=== PATIENT | female | born 1985 | race Caucasian/White ===

== ENCOUNTER 2020-12-09 09:44 | Outpatient (CLI) | payer OTHER | END 2020-12-09 23:59 | disposition home or self-care (01) | LOC: LAB 09:44 | PROVIDERS: ATTEND Student in an Organized Health Care Education/Training Program | DX: Z01.812 Encounter for preprocedural laboratory examination (principal); Z20.822 Contact with and (suspected) exposure to COVID-19 | CPT/HCPCS: C9803; U0003 ==

== ENCOUNTER 2020-12-14 12:25 | Day surgery (SDC) | payer OTHER ==
[2020-12-14] MEDS ORDERED: BUPIVACAINE 0.5 % PF 150 MG/30 ML VIAL ONE (13:10)
[2020-12-14] MEDS ORDERED: EPINEPHRINE (1:1000) 1 MG/ML AMPUL ONE (13:10)
[2020-12-14] MEDS ORDERED: FENTANYL PF 100MCG/2ML AMPUL ONE ×2 (14:16→14:45)
[2020-12-14] MEDS ORDERED: MIDAZOLAM HCL 2 MG/2ML VIAL ONE (14:16)
[2020-12-14] MEDS ORDERED: MORPHINE SULFATE/PF 10 MG/10ML (1MG/ML) AMPUL ONE (14:53)
== END 2020-12-14 16:50 | disposition home or self-care (01) ==
LOC: DS 12:25
PROVIDERS: ATTEND Student in an Organized Health Care Education/Training Program
DX: M22.2X2 Patellofemoral disorders, left knee (principal); M65.862 Other synovitis and tenosynovitis, left lower leg; E66.3 Overweight; M25.562 Pain in left knee
CPT/HCPCS: 29873; 84703; 93005; A4217; A6253; J0171; J1100; J2250; J2274; J2704; J3010 ×2; J3490 ×2; L1830